=== PATIENT | female | born 1975 | race Caucasian/White ===

== ENCOUNTER 2020-01-13 10:29 | Observation (INO) ==
[~2020-01-13 10:29] MED LIST: Clindamycin 900 MG/D5W BAG 900 MG/50 ML BAG IVPB ONE
[2020-01-13] MEDS ORDERED: HYDROmorphone PCA 20 MG/20 ML PCA.SYRING PCA SCH (11:00)
[2020-01-13] MEDS ORDERED: Naloxone 0.4 mg VIAL 0.4 mg/ml 1 ml VIAL IV PUSH PRN (11:00)
[2020-01-13] MEDS ORDERED: Ondansetron 4 mg VIAL 2 MG/ML 2 ml VIAL ONE (11:28)
[2020-01-13] MEDS ORDERED: oxyCODONE SR 10 mg TAB ONE (11:29)
[2020-01-13] MEDS ORDERED: Lidocaine 1% VIAL 10 MG/ML VIAL ONE (12:13)
[2020-01-13] MEDS ORDERED: Iohexol 350 (CONTRAST) 200 ML MDV IV ONE (12:13)
[2020-01-13] MEDS ORDERED: Heparin 2 UNITS/ML 1000 mls 2,000 ML IV ONE (12:14)
[2020-01-13] MEDS ORDERED: fentaNYL 100 mcg/2 ml 50 MCG/ML VIAL ONE ×2 (12:24→13:18)
[2020-01-13] MEDS ORDERED: Midazolam 5 mg/5 ml VIAL 1 mg/ml 5 ml VIAL (5 mg) ONE (12:24)
[2020-01-13] MEDS ORDERED: nitroGLYCERIN DRIP 25,000 MCG/250 ML BTL ONE (12:25)
[2020-01-13] MEDS ORDERED: HYDROmorphone 1 MG/1 ML SYRINGE ONE (13:49)
[2020-01-13] MEDS ORDERED: Prochlorperazine 5 mg/ml 2 ml VIAL (10 mg) ONE (13:58)
[2020-01-13] MEDS ORDERED: NS 0.9% 1000 ml BAG 1,000 ML IV SCH (14:45)
[2020-01-13] MEDS: Ondansetron 4 mg VIAL 2 MG/ML 2 ml VIAL IV SCH (20:55)
[2020-01-14] MEDS: Ondansetron 4 mg VIAL 2 MG/ML 2 ml VIAL IV SCH ×2 (02:20→08:16)
[2020-01-14] MEDS ORDERED: NS 0.9% 1000 ml BAG 1,000 ML IV SCH (02:45)
[2020-01-14] MEDS ORDERED: Cholecalciferol (VIT D3) 1,000 unit TAB PO SCH (09:00)
[2020-01-14] MEDS ORDERED: HYDROcodone/ACETAMIN 5/325 mg TAB PO PRN ×2 (09:30→09:53)
[2020-01-14 11:53] VITALS: BP 117/62
[2020-01-14] MEDS ORDERED: Ketorolac 10 mg TAB (NF) PO SCH (13:00)
== END 2020-01-14 12:30 | disposition home or self-care (01) ==
LOC: CHICATH 10:29 → SSU 16:39 → INTOOBSV 16:39
PROVIDERS: ADMIT Internal Medicine; ATTEND Internal Medicine
PROC: ANG.UFE (2020-01-13 12:10)